=== PATIENT | male | born 1965 | race Two or more races ===

== ENCOUNTER 2017-09-10 01:01 | Emergency (ER) | payer MEDICAID ==
[~2017-09-10] VITALS: Ht 165.1 cm; Wt 77.1 kg
[~2017-09-10 01:01] MED LIST: ANTIVERT25 MG ORAL
[2017-09-10] MEDS ORDERED: NKM (01:14)
[2017-09-10 01:20] VITALS: BP 121/79
[2017-09-10] MEDS ORDERED: PREDNISONE20 MG ORAL (01:27)
[2017-09-10] MEDS ORDERED: BENADRYL25 MG ORAL (01:27)
--- NOTE | 2017-09-10 01:27 | Emergency Room Report ---
History of Present Illness General Chief Complaint: Allergic Reaction Source: Patient Present Illness HPI This is a 52-year-old male with no significant past medical history. He has a history of allergic reaction before. Unknown etiology. He presents with chief complaint of itching and allergic reaction. The only thing he had today was meet and coffee. He had that before without any reaction. Last had this reaction was about few months ago. He had to the hospital. No respiratory or complaint. No nausea no vomiting. Very itchy. Worse with scratching Allergies: Coded Allergies: NO KNOWN DRUG ALLERGIES (Unverified Allergy, Unknown, 06/20/14) Patient History Past Medical History: see triage record, old chart reviewed Past Surgical History: none Pertinent Family History: none Social History: Denies: smoking Immunizations: other Reviewed Nursing Documentation: PMH: Agreed; PSxH: Agreed Nursing Documentation-PMH Past Medical History: No Stated History Review of Systems Eye: Denies: eye pain, blurred vision ENT: Denies: ear pain, nose congestion, throat swelling Respiratory: Denies: cough, shortness of breath Cardiovascular: Denies: chest pain, palpitations Gastrointestinal: Denies: abdominal pain, diarrhea, nausea, vomiting Musculoskeletal: Denies: back pain, joint pain Skin: Reports: rash Neurological: Denies: headache, numbness Endocrine: Denies: increased thirst, increased urine Hematologic/Lymphatic: Denies: easy bruising All Other Systems: negative except mentioned in HPI Physical Exam Vital Signs Date Time Temp Pulse Resp B/P (MAP) Pulse Ox O2 Delivery O2 Flow Rate FiO2 09/10/17 01:11 98.2 55 18 124/84 97 Room Air 98.2 vitals normal Sp02 EP Interpretation: reviewed, normal General Appearance: well appearing, no apparent distress, alert Head: normocephalic, atraumatic Eyes: bilateral eye PERRL, bilateral eye EOMI ENT: hearing grossly normal, normal pharynx Neck: full range of motion, supple, no meningismus Respiratory: chest non-tender, lungs clear, normal breath sounds Cardiovascular #1: regular rate, rhythm, no murmur Gastrointestinal: normal bowel sounds, non tender, no mass, no organomegaly, no bruit, non-distended Musculoskeletal: back normal, gait/station normal, normal range of motion Neurologic: alert, oriented x3 Psychiatric: mood/affect normal Skin: warm/dry, other - diffuse urticaria Medical Decision Making Diagnostic Impression: Primary Impression: Allergic reaction Qualified Codes: T78.40XA - Allergy, unspecified, initial encounter ER Course Patient with allergic reaction to unknown etiology. He would benefit from referral to see an curriculum specialist. No rest or issue. No anaphylaxis. We'll discharge home. Last Vital Signs Date Time Temp Pulse Resp B/P (MAP) Pulse Ox O2 Delivery O2 Flow Rate FiO2 09/10/17 01:11 98.2 55 18 124/84 97 Room Air 98.2 Status: improved Disposition: HOME, SELF-CARE Condition: Stable Scripts Prednisone* (PREDNISONE*) 20 Mg Tablet 60 MG ORAL DAILY, #9 TAB Prov: RAIMUNDO GUILLEN M.D. 09/10/17 Diphenhydramine Hcl* (BENADRYL*) 25 Mg Capsule 50 MG ORAL Q6H PRN for Itching, #30 CAP Prov: RAIMUNDO GUILLEN M.D. 09/10/17 Referrals: NOT CHOSEN IPA/,REFERRING (PCP) Patient Instructions: Allergies Additional Instructions: Follow-up with your doctor in 7 days. You may benefit from referral to see an curriculum specialist. Return if worse. RAIMUNDO GUILLEN M.D. Sep 10, 2017 01:27
[2017-09-10] MEDS ORDERED: DiphenhydrAMINE 50mg/ml Inj IVP ONE (01:30)
[2017-09-10] MEDS ORDERED: Solu-MEDROL 125mg Inj IVP ONE (01:30)
[2017-09-10 02:22] VITALS: BP 121/79
== END 2017-09-10 02:22 | disposition home or self-care (01) ==
LOC: EMR 01:20
DX: T78.40XA Allergy, unspecified, initial encounter (principal); X58.XXXA Exposure to other specified factors, initial encounter
CPT/HCPCS: 96374; 96375; 99284; J1200; J2930

== ENCOUNTER 2018-05-30 18:38 | Emergency (ER) | payer MEDICAID ==
[~2018-05-30] VITALS: Ht 172.7 cm; Wt 77.1 kg
[~2018-05-30 18:38] MED LIST changes: +BENADRYL25 MG ORAL; +NKM; +PREDNISONE20 MG ORAL
[2018-05-30 18:49] VITALS: BP 125/76
[2018-05-30] MEDS ORDERED: Norco 5mg/325mg tab ORAL ONE (19:15)
--- NOTE | 2018-05-30 19:47 | Emergency Room Report ---
History of Present Illness General Chief Complaint: Upper Extremity Injury Source: Patient Present Illness HPI 53-year-old male presents to the emergency department complaining of 10 out of 10 in severity right wrist pain with swelling and sensitivity 2 days. Patient reports acute onset when he awoke yesterday morning he denies trauma or fall he denies injury to this extremity in the past. Patient denies history of arthritis or gout he denies erythema, warmth, fevers, chills or recent open wounds in the near by area. Patient denies history of carpal tunnel syndrome. He states he is right-handed. He reports his pain is exacerbated upon palpation or movement of the right wrist. Denies numbness tingling or loss of sensation or gross motor movements of the extremities, Denies CP, Palpitations, LOC, AMS, dizziness, Changes in Vision, weakness or a sudden severe headache. Pt denies similar symptoms in the past on other areas of the body. Allergies: Coded Allergies: NO KNOWN DRUG ALLERGIES (Unverified Allergy, Unknown, 06/20/14) Patient History Past Medical History: see triage record Past Surgical History: none Pertinent Family History: none Immunizations: UTD Reviewed Nursing Documentation: PMH: Agreed; PSxH: Agreed Nursing Documentation-PMH Past Medical History: No Stated History Review of Systems All Other Systems: negative except mentioned in HPI Physical Exam Vital Signs Date Time Temp Pulse Resp B/P (MAP) Pulse Ox O2 Delivery O2 Flow Rate FiO2 05/30/18 18:40 98.1 56 17 129/77 99 Room Air Sp02 EP Interpretation: reviewed, normal General Appearance: alert, GCS 15, non-toxic, mild distress Head: normocephalic, atraumatic Eyes: bilateral eye normal inspection, bilateral eye PERRL ENT: hearing grossly normal, normal voice Neck: full range of motion Respiratory: lungs clear, normal breath sounds, speaking full sentences Cardiovascular #1: regular rate, rhythm, normal capillary refill Cardiovascular #2: 2+ radial (R) Rectal: deferred Genitourinary: normal inspection Musculoskeletal: back normal, gait/station normal, normal range of motion, swelling - right wrist, other - no erythema, warmth, bruises, rash or obvious deformity otherwise. FROm of distal fingers, no pain distally or proximally, , tender - right wrist to gentle/superficial palpation Neurologic: alert, oriented x3, responsive, motor strength/tone normal, sensory intact, speech normal, grossly normal Psychiatric: judgement/insight normal Skin: normal color, no rash, warm/dry, well hydrated, other - no warmth or erythema. Medical Decision Making BRIGETTE Fuller is my supervising Physician whom patient management has been discussed with. Diagnostic Impression: Primary Impression: Wrist pain, acute Qualified Codes: M25.531 - Pain in right wrist ER Course 53-year-old male presents to the emergency department complaining of 10 out of 10 in severity right wrist pain with swelling and sensitivity 2 days. Patient reports acute onset when he awoke yesterday morning he denies trauma or fall he denies injury to this extremity in the past. Patient denies history of arthritis or gout he denies erythema, warmth, fevers, chills or recent open wounds in the near by area. Patient denies history of carpal tunnel syndrome. He states he is right-handed. He reports his pain is exacerbated upon palpation or movement of the right wrist. Denies numbness tingling or loss of sensation or gross motor movements of the extremities, Denies CP, Palpitations, LOC, AMS, dizziness, Changes in Vision, weakness or a sudden severe headache. Pt denies similar symptoms in the past on other areas of the body. Ddx considered but are not limited to Fracture, dislocation, contusion, Sprain/ Strain/Spasm, carpal tunnel syndrome, gout/pseudogout, arthritis, septic joint just to name a few Vital signs: are WNL, pt. is afebrile H&PE are most consistent with musculoskeletal injury will perform imaging to r/ o fractures/dislocations. ORDERS: - X-ray right wrist 3 views - negative for fx, Dislocation, or significant soft tissue injury, per preliminary read in ED, and signed by BRIGETTE White , my supervising physician has reviewed, and agrees with my interpretation. ED INTERVENTIONS: - 600 mg Motrin -5 mg Radcliffe Right Wrist Splint applied by polysomnograph tech. Pt. remains neurovascularly intact. DISCHARGE: At this time pt. is stable for d/c to home. Will provide printed patient care instructions, and any necessary prescriptions. Care plan and follow up instructions have been discussed with the patient prior to discharge. Other X-Ray Diagnostic Results Other X-Ray Diagnostic Results : X-Ray ordered: Right Wrist # of Views/Limited Vs Complete: 3 View Indication: Pain EP Interpretation: Yes BRIGETTE Xray: Interpretation reviewed, by supervising MD, and agrees with findings. Interpretation: no dislocation, no soft tissue swelling, no fractures Impression: No acute disease Electronically Signed by: Marlene White PA-C Last Vital Signs Date Time Temp Pulse Resp B/P (MAP) Pulse Ox O2 Delivery O2 Flow Rate FiO2 05/30/18 19:35 98.3 05/30/18 18:49 61 16 125/76 98 Room Air Disposition: HOME, SELF-CARE Condition: Stable Scripts Acetaminophen* (TYLENOL EXTRA STRENGTH*) 500 Mg Tablet 500 MG ORAL Q6H, #20 TAB 0 Refills Prov: Marlene White 05/30/18 Naproxen* (NAPROXEN*) 500 Mg Tablet 500 MG ORAL TWICE A DAY for 10 Days, #28 TAB Prov: Marlene White 05/30/18 Referrals: NON PHYSICIAN (PCP) Patient Instructions: Gout, [id number], Wrist Pain Additional Instructions: Take medications as directed. Follow up with a Primary Care Provider in 3-5 days, even if your symptoms have resolved. --Please review list of primary care clinics, if you do not already have a primary care provider *SUSPECTED Pseudogout * Return sooner to ED if new symptoms occur, or current symptoms become worse. - Please note that this Emergency Department Report was dictated using [employer] technician trainee technology software, occasionally this can lead to erroneous entry secondary to interpretation by the dictation equipment. Marlene White May 30, 2018 19:47
[2018-05-30] MEDS ORDERED: NAPROXEN500 M2 ORAL (19:49)
[2018-05-30] MEDS ORDERED: TYLENOL EXTRA500 MG ORAL (19:49)
[2018-05-30 19:57] VITALS: BP 122/72
--- NOTE | 2018-05-31 08:40 | Diagnostic Imaging Report ---
Indication: Right wrist pain Findings: 3 views of the right wrist were obtained. No acute fractures, malalignment, erosions or periostitis are identified. Soft tissue swelling noted. Impression: No acute findings.
== END 2018-05-30 19:55 | disposition home or self-care (01) ==
LOC: EMR 19:13
DX: M25.531 Pain in right wrist (principal)
CPT/HCPCS: 29125; 99283

== ENCOUNTER 2018-12-03 11:01 | Emergency (ER) | payer MEDICAID ==
[~2018-12-03] VITALS: Ht 172.7 cm; Wt 77.1 kg
[~2018-12-03 11:01] MED LIST changes: +NAPROXEN500 M2 ORAL; +TYLENOL EXTRA500 MG ORAL
--- NOTE | 2018-12-03 11:23 | NUR ---
ED Nurse Note: PT WALKED IN TO ER TODAY FROM HOME. AOX4. PT C/O LOWER ABDOMINAL PAIN, 01/06, RADIATING TO RIGHT LOWER BACK X 1 WEEK AGO. PT DENIES NAUSEA OR VOMITING. PT STATES HE HAD ONE EPISODE OF DIARRHEA X THIS AM. ABDOMEN NONDISTENDED AND NONTENDER TO PALPATION. ACTIVE BOWEL SOUNDS IN ALL QUADRANTS. PT DENIES DIFFICULTY OR PAINFUL URINATION. PT DENIES INCREASE IN URINARY FREQUENCY OR URGENCY.
[2018-12-03 11:24] VITALS: BP 118/80
[2018-12-03] MEDS ORDERED: Dicyclomine HCl 10mg/5ml oral soln ORAL ONE (11:30)
[2018-12-03] MEDS ORDERED: Lidocaine 2% Visc 15ml soln ORAL ONE (11:30)
[2018-12-03] MEDS ORDERED: Mylanta II UD 30ml ORAL ONE (11:30)
--- NOTE | 2018-12-03 11:37 | NUR ---
ED Nurse Note: XRAY AT BEDSIDE.
[2018-12-03 11:40] LABS: APPEARANCE,URINE CLEAR; BILIRUBIN, URINE NEGATIVE (NEGATIVE); COLOR,URINE PALE YELLOW; EOSINOPHILS % (AUTO) 2.8 % (0.0-3.0); GLUCOSE, URINE (UA) NEGATIVE (NEGATIVE); HEMATOCRIT 45.1 % (42.0-52.0); HEMOGLOBIN 15.3 G/DL (14.2-18.0); KETONES,URINE NEGATIVE (NEGATIVE); LEUKOCYTE ESTERASE ,URINE NEGATIVE (NEGATIVE); LYMPHOCYTES % (AUTO) 38.5 % (20.0-45.0); MEAN CORPUSCULAR VOLUME 89 FL (80-99); MONOCYTES % (AUTO) 6.9 % (1.0-10.0); NEUTROPHILS % (AUTO) 50.7 % (45.0-75.0); NITRITE,URINE NEGATIVE (NEGATIVE); PH,URINE 5 (4.5-8.0); PLATELET COUNT 197 K/UL (150-450); PROTEIN,URINE NEGATIVE (NEGATIVE); RED BLOOD COUNT 5.04 M/UL (4.70-6.10); RED CELL DISTRIBUTION WIDTH 11.9 % (11.6-14.8); UROBILINOGEN,URINE NORMAL MG/DL (0.0-1.0); WHITE BLOOD COUNT 7.5 K/UL (4.8-10.8)
[2018-12-03 11:53] LABS: ANION GAP 9 mmol/L (5-15); BLOOD UREA NITROGEN 17 mg/dL (7-18); CALCIUM 9.3 MG/DL (8.5-10.1); CARBON DIOXIDE 25 MMOL/L (21-32); CHLORIDE 106 MMOL/L (98-107); CREATININE 1.1 MG/DL (0.55-1.30); POTASSIUM 4.2 MMOL/L (3.5-5.1); SODIUM 140 MMOL/L (136-145)
[2018-12-03 11:58] LABS: ALANINE AMINOTRANSFERASE 27 U/L (12-78); ALBUMIN 3.9 G/DL (3.4-5.0); ALBUMIN/GLOBULIN RATIO 1.1 (1.0-2.7); ALKALINE PHOSPHATASE 75 U/L (46-116); ASPARTATE AMINO TRANSFERASE 13 U/L (15-37); BILIRUBIN,TOTAL 0.3 MG/DL (0.2-1.0)
[2018-12-03 12:21] VITALS: BP 122/78
--- NOTE | 2018-12-03 12:22 | NUR ---
ED Nurse Note: PT LAYING PEACEFULLY IN BED IN NAD. AOX4. PRESCRIPTIONS AND DISCHARGE PAPERWORK EXPLAINED TO PT. PT VERBALIZES UNDERSTANDING AND ALL QUESTIONS ANSWERED. PRESCRIPTIONS AND DISCHARGE PAPERWORK GIVEN TO PT, IV AND ID WRISTBAND REMOVED. PT WALKED OUT OF ER WITH STEADY GAIT AND ALL BELONGINGS.
[2018-12-03] MEDS ORDERED: RANITIDINE HCL150 MG ORAL (12:24)
[2018-12-03] MEDS ORDERED: ONDANSETRON ODT4 MG BC (12:24)
[2018-12-03] MEDS ORDERED: DICYCLOMINE HCL10 MG ORAL (12:24)
--- NOTE | 2018-12-03 12:31 | Diagnostic Imaging Report ---
EXAM: XR Abdomen, 2 Views CLINICAL HISTORY: ABD PAIN TECHNIQUE: Frontal view of the abdomen/pelvis with upright view of the abdomen. COMPARISON: No relevant prior studies available. FINDINGS: Intraperitoneal space: No evidence of free air below the diaphragm. Gastrointestinal tract: Nonspecific, nonobstructive bowel gas pattern. Organs: The renal shadows are obscured by bowel gas. No evidence of organomegaly. Bones/joints: Unremarkable. Vasculature: 3 mm calcification in the right pelvis, likely representing a pelvic phlebolith. IMPRESSION: Nonspecific, nonobstructive bowel gas pattern.
--- NOTE | 2018-12-03 13:25 | Emergency Room Report ---
History of Present Illness General Chief Complaint: Abdominal Pain Source: Patient Present Illness HPI 53-year-old male presents ED for evaluation. Patient came in from home complaining of abdominal pain with diarrhea x1 week. Pain is cramping, generalized, 5 out of 10. Denies nausea or vomiting. Denies recent travel or recent antibiotic use. Other aggravating relieving factors. Denies any other associated symptoms Allergies: Coded Allergies: NO KNOWN DRUG ALLERGIES (Unverified Allergy, Unknown, 06/20/14) Patient History Past Medical History: none Past Surgical History: none Pertinent Family History: none Social History: Denies: smoking, alcohol use, drug use Immunizations: UTD Reviewed Nursing Documentation: PMH: Agreed; PSxH: Agreed Nursing Documentation-PMH Past Medical History: No Stated History Review of Systems All Other Systems: negative except mentioned in HPI Physical Exam Vital Signs Date Time Temp Pulse Resp B/P (MAP) Pulse Ox O2 Delivery O2 Flow Rate FiO2 12/03/18 11:13 98.1 48 17 112/77 (89) 99 Room Air Sp02 EP Interpretation: reviewed, normal General Appearance: no apparent distress, alert, GCS 15, non-toxic Head: normocephalic, atraumatic Eyes: bilateral eye normal inspection, bilateral eye PERRL ENT: hearing grossly normal, normal pharynx, no angioedema, normal voice Neck: full range of motion, supple/symm/no masses Respiratory: chest non-tender, lungs clear, normal breath sounds, speaking full sentences Cardiovascular #1: regular rate, rhythm, no edema Cardiovascular #2: 2+ carotid (R), 2+ carotid (L), 2+ radial (R), 2+ radial (L) , 2+ dorsalis pedis (R), 2+ dorsalis pedis (L) Gastrointestinal: normal bowel sounds, non tender, soft, non-distended, no guarding, no rebound Rectal: deferred Genitourinary: normal inspection, no CVA tenderness Musculoskeletal: back normal, gait/station normal, normal range of motion, non- tender Neurologic: alert, oriented x3, responsive, motor strength/tone normal, sensory intact, speech normal Psychiatric: judgement/insight normal, memory normal, mood/affect normal, no suicidal/homicidal ideation Reflexes: 3+ bicep (R), 3+ bicep (L), 3+ tricep (R), 3+ tricep (L), 3+ knee (R) , 3+ knee (L) Lymphatic: no adenopathy Medical Decision Making Diagnostic Impression: Primary Impression: Gastroenteritis ER Course Hospital Course 53-year-old M presents to ED with cramping abdominal pain with diarrhea differential diagnosis: gastritis, SBO, cholecystits, gastroenteritis Clinical course Patient placed on stretcher. On cardiac cath rn. After initial history and physical I ordered labs, IV fluids, zofran, GI cocktail and pepcid Labs - no leukocytosis, electrolytes ok, lfts ok, lipase ok Upon reassessment, patient states pain has improved. findings consistent with gastroenteritis Discussed findings with patient. Safe for discharge with close outpatient follow-up. Does not have a PMD. Will provide referrals I feel this is a highly complex case requiring extensive working including EKG/ Rhythm strip, Xray/CT/US, Blood/urine lab work, repeat exams while in ED, and administration of strong opiates/narcotics for pain control, admission to hospital or close patient follow up. Diagnosis - gastroenteritis Stable and discharged to home with prescriptions for Zantac, zofran, bentyl. Followup with PMD. Return to ED if symptoms recur or worsen Labs Test 12/03/18 11:31 White Blood Count 7.5 K/UL (4.8-10.8) Red Blood Count 5.04 M/UL (4.70-6.10) Hemoglobin 15.3 G/DL (14.2-18.0) Hematocrit 45.1 % (42.0-52.0) Mean Corpuscular Volume 89 FL (80-99) Mean Corpuscular Hemoglobin 30.4 PG (27.0-31.0) Mean Corpuscular Hemoglobin Concent 34.0 G/DL (32.0-36.0) Red Cell Distribution Width 11.9 % (11.6-14.8) Platelet Count 197 K/UL (150-450) Mean Platelet Volume 6.9 FL (6.5-10.1) Neutrophils (%) (Auto) 50.7 % (45.0-75.0) Lymphocytes (%) (Auto) 38.5 % (20.0-45.0) Monocytes (%) (Auto) 6.9 % (1.0-10.0) Eosinophils (%) (Auto) 2.8 % (0.0-3.0) Basophils (%) (Auto) 1.0 % (0.0-2.0) Urine Color Pale yellow Urine Appearance Clear Urine pH 5 (4.5-8.0) Urine Specific Faber 1.015 (1.005-1.035) Urine Protein Negative (NEGATIVE) Urine Glucose (UA) Negative (NEGATIVE) Urine Ketones Negative (NEGATIVE) Urine Blood Negative (NEGATIVE) Urine Nitrite Negative (NEGATIVE) Urine Bilirubin Negative (NEGATIVE) Urine Urobilinogen Normal MG/DL (0.0-1.0) Urine Leukocyte Esterase Negative (NEGATIVE) Sodium Level 140 MMOL/L (136-145) Potassium Level 4.2 MMOL/L (3.5-5.1) Chloride Level 106 MMOL/L (98-107) Carbon Dioxide Level 25 MMOL/L (21-32) Anion Gap 9 mmol/L (5-15) Blood Urea Nitrogen 17 mg/dL (7-18) Creatinine 1.1 MG/DL (0.55-1.30) Estimat Glomerular Filtration Rate > 60 mL/min (>60) Glucose Level 116 MG/DL (74-106) Calcium Level 9.3 MG/DL (8.5-10.1) Total Bilirubin 0.3 MG/DL (0.2-1.0) Aspartate Amino Transf (AST/SGOT) 13 U/L (15-37) Alanine Aminotransferase (ALT/SGPT) 27 U/L (12-78) Alkaline Phosphatase 75 U/L (46-116) Total Protein 7.4 G/DL (6.4-8.2) Albumin 3.9 G/DL (3.4-5.0) Globulin 3.5 g/dL Albumin/Globulin Ratio 1.1 (1.0-2.7) Lipase 131 U/L (73-393) Last Vital Signs Date Time Temp Pulse Resp B/P (MAP) Pulse Ox O2 Delivery O2 Flow Rate FiO2 12/03/18 12:21 98.3 62 17 122/78 99 Room Air Status: improved Disposition: HOME, SELF-CARE Condition: Stable Scripts Ranitidine Hcl* (ZANTAC*) 150 Mg Tablet 150 MG ORAL TWICE A DAY, #30 TAB Prov: Raul Lemus MD 12/03/18 Ondansetron Odt* (ZOFRAN ODT*) 4 Mg Tab.rapdis 4 MG BC EVERY 6 HOURS PRN for Nausea & Vomiting, #20 TAB 0 Refills Prov: Raul Lemus MD 12/03/18 Dicyclomine Hcl* (DICYCLOMINE HCL*) 10 Mg Capsule 10 MG ORAL QID, #20 CAP Prov: Raul Lemus MD 12/03/18 Referrals: NON PHYSICIAN (PCP) [facility] Patient Instructions: Viral Gastroenteritis, Adult, [id number] Raul Lemus MD Dec 03, 2018 13:25
== END 2018-12-03 12:28 | disposition home or self-care (01) ==
LOC: EMR 11:42
DX: K52.9 Noninfective gastroenteritis and colitis, unspecified (principal)
CPT/HCPCS: 36415; 74018; 80053; 81003; 83690; 85025; 96361; 96374; 96375; 99284; J2405; S0028